=== PATIENT | male | born 1945 | race Caucasian/White ===

== ENCOUNTER 2018-09-19 08:25 | Observation (INO) ==
[2018-09-19] MEDS ORDERED: SODIUM CHLORIDE 0.9% 500 ML IV STA (09:13)
[2018-09-19 09:23] LABS: Basophils % 0.4 % (0.0-0.8); Eosinophils # 0.3 10*3/uL (0.0-0.87); Eosinophils % 2.7 % (0.00-10.9); Hematocrit 38.5 VOL% (42.0-52.0); Hemoglobin 11.9 GM/DL (14.0-18.0); Immature Granulocytes % 0.2 %; Immature Granulocytes Absolute 0.02 #; Lymphocytes # 1.5 10*3/uL (1.4-4.0); Lymphocytes % 16.2 % (21.2-54.2); Mean Corpuscular HGB Conc 30.9 GM/DL (32-36); Mean Corpuscular Hemoglobin 30 PG (27-34); Mean Corpuscular Volume 97.2 FL (87-102); Mean Platelet Volume 9.3 FL (9.6-12.0); Monocytes % 10.2 % (1.7-12.7); Neutrophils # 6.6 10*3/uL (1.4-7.4); Neutrophils % 70.3 % (38.7-73.9); Platelet Count 319 T/CUMM (130-400); Red Blood Count 3.96 MC/CUMM (3.8-5.5); Red Cell Distribution Width 17.2 % (9.3-17.3); White Blood Count 9.4 T/CUMM (4-12)
[2018-09-19 09:49] LABS: Albumin 3.2 G/DL (3.4-5.0); Bilirubin,Total 0.6 MG/DL (0.2-1.0); Calcium 8.4 MG/DL (8.5-10.1); Potassium 4.9 MMOL/L (3.5-5.1); Total Protein 6.5 G/DL (6.4-8.3)
[2018-09-19 10:07] LABS: PT Patient Result 10.7 SECS
[2018-09-19] MEDS ORDERED: DEXTROSE 50% 25 GM/50 ML SYRINGE IV ONE (10:42)
[2018-09-19] MEDS ORDERED: DEXTROSE 50% 25 GM/50 ML VIAL IV STA (10:44)
[2018-09-19] MEDS ORDERED: ACETAMINOPHEN 325 MG TABLET PO PRN (11:14)
[2018-09-19] MEDS ORDERED: diphenhydrAMINE CAP 25 MG CAPSULE PO PRN (11:14)
[2018-09-19] MEDS ORDERED: ONDANSETRON 4 MG/2 ML VIAL IV PRN (11:14)
[2018-09-19] MEDS ORDERED: FUROSEMIDE 20 MG TABLET PO SCH (11:30)
[2018-09-19] MEDS ORDERED: metOLazone 2.5 MG TABLET PO SCH (13:30)
[2018-09-19] MEDS ORDERED: POLYETHYLENE GLYCOL POWDER 17 GM PACK PO SCH (13:30)
[2018-09-19] MEDS: DEXTROSE 5% NACL 0.9% 1,000 ML IV SCH (14:25)
[2018-09-19] MEDS: ISOSORBIDE MONONITRATE 30 MG TABLET PO SCH (14:33)
[2018-09-19] MEDS: ASCORBIC ACID 500 MG TABLET PO SCH (14:33)
[2018-09-19] MEDS: TAMSULOSIN 0.4 MG CAPSULE PO SCH (14:33)
[2018-09-19] MEDS: ENOXAPARIN 40 MG/0.4 ML SYRINGE SUBCUT SCH (14:33)
[2018-09-19] MEDS: ASPIRIN 325 MG TABLET PO SCH (14:33)
[2018-09-19] MEDS: CLOPIDOGREL 75 MG TABLET PO SCH (14:33)
[2018-09-19] MEDS: LISINOPRIL 2.5 MG TABLET PO SCH (14:34)
[2018-09-19] MEDS: PANTOPRAZOLE 40 MG TABLET PO SCH (14:34)
[2018-09-19] MEDS: CARVEDILOL 3.125 MG TABLET PO SCH ×2 (14:34→21:15)
[2018-09-19] MEDS: ALBUTEROL/IPRATROPIUM 3 ML NEB RESP TX SCH ×2 (15:25→19:09)
[2018-09-19] MEDS: CAMPHOR/MENTHOL LOTION 222 ML BOTTLE TOP SCH (16:10)
[2018-09-19] MEDS: SODIUM CHLORIDE/POTASSIUM CHLORIDE TABLET PO SCH (21:13)
[2018-09-19] MEDS: DOCUSATE/SENNA 50-8.6 MG TABLET PO SCH (21:13)
[2018-09-20] MEDS: DEXTROSE 5% NACL 0.9% 1,000 ML IV SCH (00:31)
[2018-09-20] MEDS: ALBUTEROL/IPRATROPIUM 3 ML NEB RESP TX SCH ×3 (03:10→07:35)
[2018-09-20 05:10] LABS: Basophils # 0.1 10*3/uL (0.0-0.2); Basophils % 0.6 % (0.0-0.8); Eosinophils # 0.3 10*3/uL (0.0-0.87); Eosinophils % 3.4 % (0.00-10.9); Hemoglobin 11.5 GM/DL (14.0-18.0); Immature Granulocytes % 0.3 %; Immature Granulocytes Absolute 0.03 #; Lymphocytes # 2.8 10*3/uL (1.4-4.0); Lymphocytes % 31.4 % (21.2-54.2); Mean Corpuscular HGB Conc 31.1 GM/DL (32-36); Mean Corpuscular Hemoglobin 30 PG (27-34); Mean Corpuscular Volume 96.9 FL (87-102); Mean Platelet Volume 9.7 FL (9.6-12.0); Monocytes % 11.1 % (1.7-12.7); Neutrophils # 4.7 10*3/uL (1.4-7.4); Neutrophils % 53.2 % (38.7-73.9); Platelet Count 319 T/CUMM (130-400); Red Blood Count 3.82 MC/CUMM (3.8-5.5); Red Cell Distribution Width 17.6 % (9.3-17.3); White Blood Count 8.8 T/CUMM (4-12)
[2018-09-20 05:34] LABS: Blood Urea Nitrogen 40 MG/DL (7-18); Cholesterol < 50 MG/DL (50-200); Glucose 203 MG/DL (74-106); HDL Cholesterol 27 MG/DL (40-60); Osmolality,Calculated 285.1 MOS/KG (273-304); Potassium 4.2 MMOL/L (3.5-5.1); Risk Ratio 1.85; Sodium 135 MMOL/L (136-145); Thyroid Stimulating Hormone 0.111 uIU/ml (0.358-3.74); Triglycerides 55 MG/DL (2-150)
[2018-09-20] MEDS ORDERED: LEVOTHYROXINE 175 MCG TABLET PO SCH (06:30)
[2018-09-20 07:50] VITALS: BP 110/74
[2018-09-20] MEDS: CLOPIDOGREL 75 MG TABLET PO SCH (09:02)
[2018-09-20] MEDS: LISINOPRIL 2.5 MG TABLET PO SCH (09:02)
[2018-09-20] MEDS: ISOSORBIDE MONONITRATE 30 MG TABLET PO SCH (09:02)
[2018-09-20] MEDS: ASCORBIC ACID 500 MG TABLET PO SCH (09:02)
[2018-09-20] MEDS: TAMSULOSIN 0.4 MG CAPSULE PO SCH (09:03)
[2018-09-20] MEDS: SODIUM CHLORIDE/POTASSIUM CHLORIDE TABLET PO SCH (09:03)
[2018-09-20] MEDS: ENOXAPARIN 40 MG/0.4 ML SYRINGE SUBCUT SCH (09:03)
[2018-09-20] MEDS: CARVEDILOL 3.125 MG TABLET PO SCH (09:03)
[2018-09-20] MEDS: DOCUSATE/SENNA 50-8.6 MG TABLET PO SCH (09:03)
[2018-09-20] MEDS: PANTOPRAZOLE 40 MG TABLET PO SCH (09:03)
[2018-09-20] MEDS: ASPIRIN 325 MG TABLET PO SCH (09:03)
[2018-09-20] MEDS: CAMPHOR/MENTHOL LOTION 222 ML BOTTLE TOP SCH (09:03)
[2018-09-21] MEDS ORDERED: KETOCONAZOLE 2% SHAMPOO 120 ML BOTTLE TOP SCH (09:00)
== END 2018-09-20 11:17 ==
LOC: EDBD → EDUNIT# → N.EDINP 08:25 → N.ED 08:25 → N.2E 12:43
PROVIDERS: ADMIT Internal Medicine; ATTEND Internal Medicine